=== PATIENT | male | born 1935 | race Caucasian/White ===

== ENCOUNTER 2016-09-15 15:03 | Inpatient (IN) | payer OTHER ==
[~2016-09-15] VITALS: Ht 167.6 cm; Wt 75.6 kg
--- NOTE | 2016-09-15 15:47 | DIAGNOSTIC IMAGING REPORT ---
PROCEDURE: XR CHEST 2 VIEW INDICATION: FALL/RIB PAIN TECHNIQUE: PA and lateral views. COMPARISON: Chest 09/15/2011 FINDINGS: There is a left apical pneumothorax. There is pleural fluid and infiltrate in the left lower lobe. The right lung remains clear. IMPRESSION: 1. Left-sided hemopneumo thorax. 2. Results called to Dr. Mijares at 03:45 p.m.
[2016-09-15 16:23] VITALS: BP 161/65
--- NOTE | 2016-09-15 17:37 | NUR ---
Pt arrived on the floor around 1630 as direct admit. Able to transfer self from w/c to bed, but unsteady and guarded ambulation. Pain 9/10 upon arrival, but once settled in bed, he said pain is ok at 2/10. Lungs are very diminished on anterior and posterior LLL. Tachypnic. Noted some bruises on L ribs (under armpit). Will cont to monitor.
--- NOTE | 2016-09-15 18:12 | NUR ---
Notified for his arrival. Confirmed that pt needs to be on 2L O2 at all times. also came and saw the pt. Pt will be NPO after midnight to drain out the hematoma tomorrow. Pt comfortable but slight movement causes severe pain. Will try and manage pain with topical lidocaine, but has vicodin for break through pain. Will cont to monitor.
--- NOTE | 2016-09-15 18:43 | CONSULTATION REPORT ---
DATE OF CONSULTATION: 09/15/2016 CHIEF COMPLAINT: 1. Left hemopneumothorax. HISTORY OF PRESENT ILLNESS: The patient is a 80-year-old man who fell 3 days ago on his left side. He had increasing difficulty breathing, was seen in the clinic. He was found on chest x-ray to have a hemopneumothorax on the left side. MEDICAL/SURGICAL HISTORY: He has a history of previous falls. Additional medical history includes irregular heart rate, small-bowel obstruction, renal mass, dizziness, essential hypertension, BPH, depression, colostomy and ventral hernia, hypercholesterolemia, diabetic neuropathy, type 2 diabetes. Past surgery: The patient had a peristomal hernia repair and incarcerated ventral hernia repair in 2004. He had a proctocolectomy for ulcerative colitis as well as an ileostomy placed in the distant past. MEDICATIONS: 1. Currently are calcium supplements. 2. Eucerin skin cream. 3. Triamcinolone skin cream. 4. Spiriva inhaler 18 mcg daily for COPD. 5. Metformin HCL 500 mg b.i.d. 6. Aspirin 81 mg daily. 7. Lovastatin 40 mg every. 8. Sertraline 100 mg daily. 9. Losartan 50 mg daily. 10. Multiple nutritional supplements. ALLERGIES: 1. LISINOPRIL. 2. CHLORTHALIDONE. 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 He quit smoking in 1996 and does not use alcohol. Does not use recreational drugs. He is . FAMILY HISTORY: Mother is living. Father at age 85. Brother has diabetes. PHYSICAL EXAMINATION: GENERAL: The patient is alert and cooperative. He is eating dinner at the moment. He is mildly tachypneic and appears mildly short of breath. HEENT: His ears and nose demonstrate no gross external lesions. Eyes are equal. He is anicteric. NECK: Without palpable masses or thyromegaly. CHEST: Clear; however, breath sounds are absent in the lower half of the left chest and diminished in the upper portion. ABDOMEN: Soft. No localized tenderness. He has an ileostomy in place. LAB/IMAGING: His x-ray PA and lateral was reviewed. It appears the lower third demonstrates a density consistent with hemothorax. There is an apical pneumothorax relatively small. ASSESSMENT: 1. Left hemopneumothorax with significant fluid density. PLAN: I recommended the patient undergo drainage of this fluid density in the operating room under thoracoscopic guidance. This was consistent with thoracoscopic decortication, especially in the event that a clotted hemothorax was found. This can usually be broken up and evacuated mechanically before placement of a chest tube to reexpand the lung. I explained to the patient the purpose of this procedure as well some of the risks involved and he agreed to undergo it. In my opinion, this will be his most reliable way of achieving full pulmonary function since hemopneumothoraces at this point in time are often clotted and do not evacuate easily through simple percutaneous chest tube placement.
--- NOTE | 2016-09-15 23:00 | NUR ---
PT RESTING IN BED. ALERT AND ORIENTED X3. PAIN AT A 0/10, INCREASING WITH MOVMEMENT. O2 SATS AT 94% ON 2 LITERS NC. NO COUGH NOTED. NO CHEST PAIN, NO HEART PALPITATIONS. IV TO RAC UNREMARKABLE - IV INFUSING AT 100/HR. PT RECIEVED A AM SNACK - ATE 100%. WAFFLE MATTRESS IN PLACE. SCDS BILAT. CALL LIGHT WITHIN REACH. PT REPOSITIONS IN BED WITH ENCOURAGEMENT. NO FURTHER REQUESTS AT THIS TIME.
--- NOTE | 2016-09-15 23:02 | NUR ---
PT REMAINS ON TELE - SINUS RHYTHM WITH PVCS NOTED. HEART RATE AT 63.
[2016-09-15 23:37] VITALS: BP 129/63
--- NOTE | 2016-09-15 23:52 | NUR ---
FLUIDS TAKEN AWAY FROM PT - NPO AT THIS TIME FOR AM SURGERY.
--- NOTE | 2016-09-15 23:53 | NUR ---
INCENTIVE SPIROMETER GIVEN TO PT WITH INSTRUCTIONS - PT USE APPROPRIATELY TO 1250ML.
[2016-09-16] VITALS (9 sets, daily range): BP systolic 134–156; BP diastolic 58–73
--- NOTE | 2016-09-16 06:23 | DIAGNOSTIC IMAGING REPORT ---
PROCEDURE: XR CHEST 1 VIEW INDICATION: Follow-up left hydropneumothorax. TECHNIQUE: Portable AP view (0540 hours). COMPARISON: None. FINDINGS: There has been no change in small to moderate left apical pneumothorax with moderate left pleural effusion. There is moderate worsening in left basilar atelectasis/consolidation. There is mild volume loss at the right lung base. Heart and mediastinum are normal. No definite rib fractures are identified, although occult rib fractures may be present. IMPRESSION: 1. No change in small to moderate left apical pneumothorax. 2. No change in moderate left basilar pleural pneumothorax. 3. Mild worsening in moderate left basilar atelectasis/consolidation. 4. Development of mild volume loss at the right lung base.
[2016-09-16] MEDS ORDERED: CALCIUM CARBON500 MG PO (07:28)
[2016-09-16] MEDS ORDERED: EUCERI1 (07:28)
[2016-09-16] MEDS ORDERED: TRIAMCINOLONE0.025 % (07:29)
[2016-09-16] MEDS ORDERED: SPIRIVA18 MCG INH (07:29)
[2016-09-16] MEDS ORDERED: GLUCOPHAGE500 MG PO (07:29)
[2016-09-16] MEDS ORDERED: LOVASTATIN40 MG PO (07:30)
[2016-09-16] MEDS ORDERED: ASPIRIN81 M1 PO (07:30)
[2016-09-16] MEDS ORDERED: COZAAR50 MG PO (07:30)
[2016-09-16] MEDS ORDERED: SERTRALINE HCL50 MG PO (07:30)
[2016-09-16] MEDS ORDERED: MULTIPLE VITAMIN PO (07:31)
[2016-09-16] MEDS ORDERED: FISH OIL PO (07:32)
--- NOTE | 2016-09-16 07:40 | Progress Note ---
Subjective General 80 year old male who has had repeated falls. Was seen in clinic with CXR showing hemothorax and pneumothorax. Was admitted for monitoring and surgical consultation. Rec that he have removal of clot to help with lung function. He is feeling better with the pain meds (lidocaine patch etc) States he feels better this am. Physical Exam Vital Signs / I&Os Vital Signs Date Time Temp Pulse Resp B/P Pulse O2 O2 Flow FiO2 Ox Delivery Rate 09/16 0653 98.1 56 18 140/73 95 Nasal 2.0 Cannula 09/16 0521 98.1 60 16 134/63 97 Nasal 2.0 Cannula 09/15 2337 129/63 09/15 2255 67 16 94 Nasal 2.0 Cannula 09/15 1931 Nasal 2.0 Cannula 09/15 1623 98.1 64 28 161/65 96 I&O 09/16 0000 09/15 1600 09/15 0800 Intake Total 120 Output Total 650 Balance -530 General Appearance Alert, Cooperative, No acute distress Lungs coarse BS and some decrease in BS on the L side Cardiovascular Regular rate and rhythm Abdomen Soft, mildly tender at the right upper abd/lower chest Extremities No edema LAB Results Laboratory Tests 09/16 09/15 0520 1750 Chemistry Plasma Sodium (136 - 145 mmol/L) 142 143 Plasma Potassium (3.5 - 5.1 mmol/L) 3.9 3.7 Plasma Chloride (98 - 107 mmol/L) 108 107 CO2 (Enzymatic) (21 - 32 mmol/L) 26 28 BUN (7 - 18 mg/dL) 16 18 Creatinine (0.6 - 1.3 mg/dL) 1.0 1.4 Est GFR ( Amer) (mL/min) >60 >60 Est GFR (Non-Af Amer) (mL/min) >60 52.09 Glucose (70 - 110 mg/dL) 125 127 Plasma Calcium (8.5 - 10.1 mg/dL) 8.0 8.2 Total Bilirubin (0.0 - 1.0 mg/dL) 0.8 AST (15 - 37 U/L) 21 ALT (12 - 78 U/L) 21 Alkaline Phosphatase (46 - 116 U/L) 61 Total Protein (6.4 - 8.2 g/dL) 7.3 Albumin (3.3 - 5.0 g/dL) 3.4 Hematology WBC (4.5 - 11.5 K/uL) 7.9 8.2 RBC (4.50 - 5.90 M/uL) 3.15 3.42 Hgb (13.5 - 17.5 gm/dL) 10.4 11.2 Hct (41.0 - 53.0 %) 31.4 34.0 MCV (80 - 100 fL) 100 99 MCH (26 - 34 pg) 33 33 RDW (11.6 - 14.8 %) 14.6 14.0 Neut % (Auto) (50 - 75 %) 64.9 71.9 Lymph % (Auto) (25 - 40 %) 20.9 17.7 [place] % (Auto) (3 - 14 %) 11.6 9.5 Eos % (Auto) (0 - 4 %) 2.1 0.7 Baso % (Auto) (0 - 2 %) 0.5 0.2 Plt Count, EDTA (150 - 400 K/uL) 129 163 PUBS MCHC (31 - 37 g/dL) 33 33 Microbiology Date/Time Procedure - Status Source Growth 09/16 0618 MRSA Screen - RECD NASAL Imaging CXR: IMPRESSION: 1. No change in small to moderate left apical pneumothorax. 2. No change in moderate left basilar pleural pneumothorax. 3. Mild worsening in moderate left basilar atelectasis/consolidation. 4. Development of mild volume loss at the right lung base. Assessment and Plan Problem List 1. Pneumothorax Plan To the OR today with Dr Neff. 2. Hemothorax Plan OR today Dr. Neff 3. Rib pain on left side Plan Improved pain control 4. Fall Plan Has been with falls and will have PT eval. May need to have strengthening after stable.
--- NOTE | 2016-09-16 09:31 | NUR ---
PATIENT COMPLAINING OF SOME PLEURITIC LIKE CHEST PAIN THAT RADIATES TO BACK. ALSO TELE HAS BEEN SHOWING SINUS YAZMIN WITH SOME PAC'S OCCASIONALLY DIPPING DOWN TO THE 40'S BUT MAINLY IN THE 50'S. NOTIFIED DR TRINIDAD, ORDERS FOR EKG WELL AN ADD ON TROPONIN FOR THIS A.M. AND TOMORROW MORNING. FAMILY VISITNG PATIENT NOW. GIVEN PAIN MEDICINE. WILL MONITOR, CALL LIGHT WITHIN REACH.
--- NOTE | 2016-09-16 14:04 | NUR ---
NUTRITION ASSESSMENT: S: Pt is 80 year old man that fell 3 days ago on his left side and was admitted with left hemopneumothorax. Pt is down for a procedure for drainagel of fluid density under thoracoscopic, pt has been NPO for today but has reportedly lost ~15 pounds in last 2 months. PMH includes: irregular heart rate, small bowel obstruction, renal mass, dizziness, essential HTN, depression, colonoscopy, ventral hernia, hypercholesterolemia, diabetic neuropathy, type II diabetes. O: Diet rx: NPO NKFA Wts: 74.1 kg Ht:66" IBW: 52-66 kg BMI: 26.5 Est kcals: ~3690-0719 kcals per day Est pro: ~66-80 g per day Est fluids: ~1980 mls per day Meds Incl: atacand, med dose SSI, levofloxacin, lidocane, sertraline, see eMar for complete list/details. Labs Incl: (09/16) glucose 125, BUN 16, Na+ 142, K+ 3.9, Ca+ 8.0, HCT 31.4, HGB 10.4, MCV 100, MCH 33 albumin 3.4, total pro 7.3 skin: luis daniel score [address] Accuchecks: 103-125 A: Pt down for procedure this afternoon. Rec consistent carb diet when able to have solid foods. Rec boost glucose control if po less than 50% after meals. Rev'd meds and labs, recent accuchecks appear within acceptable peramenters. RD to follow up and continue to monitor nutritino indices prn/protocol. nutrition goals: >50% po intake no further wt loss.
--- NOTE | 2016-09-16 14:51 | NUR ---
INTRODUCED SELF TO PT IN PRE OP HOLDING. PT VERIFIED NAME, BIRTHDATE, ALLERGIES, AND SURGICAL CONSENT. PT NPO SINCE MIDNIGHT WITH SIPS OF WATER WITH HIS AM MEDICATIONS. PT BLOOD SUGAR 105 AT 1415. PT CHART REVIEWED AND PT QUESTIONS ANSWERED. SURGEON WROTE ORDER FOR 1GM ANCEF. PT VOIDED IMMEDIATELY PRIOR TO TRANSPORTATION TO PRE OP HOLDING. JOE
--- NOTE | 2016-09-16 14:59 | NUR ---
PT RESTATED NAME, BIRTHDATE, AND SURGICAL PROCEDURE AFTER ENTERING OR SUITE. SD
--- NOTE | 2016-09-16 15:00 | NUR ---
PT AND SURGEON COORDINATED MARKING OF LEFT SIDE SURGICAL SITE. JOE
--- NOTE | 2016-09-16 15:07 | NUR ---
PT POSITIONED BY SURGEON, ANESTHESIA, NU.SD, NU.DIL, FT.LDE, OR.JAB, OR.MLC PEG BOARD ON BED FULL GEL PAD COVERING PEG BOARD GEL PAD DOUBLED AT LOWER PORTION OF BED, UNDER PT RIGHT LOWER LEG ROLLED EGGCRATE RIGHT AXILLARY ROLL LEFT ARM POSITIONED ON PILLOW ON TEE STAND RIGHT ARM ON ARMBOARD PILLOW BETWEEN PT LEGS PILLOW UNDER PT HEAD
--- NOTE | 2016-09-16 15:14 | NUR ---
PTS GENITALIA CHECKED
--- NOTE | 2016-09-16 16:41 | NUR ---
PT RECEIVED TO PACU AROUSABLE TO VOICE. VSS. HOB ELEVATED 30 DEGREES. CHEST TUBES A-ANTERIOR, B-POSTERIOR CONNECTED TO -20CM H2O PRESSURE, BOTH CHEST TUBES WITH AIRLEAK AND RED DRAINAGE. GOOD FLUCTUATION WITH RESPIRATION ON BOTH CHEST TUBES. PT PLACED ON HUMIDIFIED O2 VIA FACE TENT. VSS.
--- NOTE | 2016-09-16 16:59 | NUR ---
PT AWAKE AND COMFORTABLE. DENIES PAIN OR NAUSEA. COACHED TO DEEP BREATHE AND COUGH. VSS. DR TOURE SPOKE WITH PT REGARDING SURGICAL FINDINGS AND OUTCOME.
--- NOTE | 2016-09-16 17:01 | DIAGNOSTIC IMAGING REPORT ---
PROCEDURE: XR CHEST 1 VIEW INDICATION: post op evacuation of hemo pneumothorax TECHNIQUE: Portable AP view 04:27 p.m. COMPARISON: Chest x-ray 09/16/2016 FINDINGS: Poor inspiration. Interval placement of a two left chest tubes with resolved left pneumothorax. No change of the moderate left basilar consolidation and right basilar atelectasis. Heart size, mediastinum and pulmonary vessels are normal. Thorax is normal. IMPRESSION: 1. Two left chest tubes in place with resolved left pneumothorax 2. Stable moderate left basilar consolidation and mild right basilar atelectasis
--- NOTE | 2016-09-16 17:32 | NUR ---
PATIENT BACK TO ROOM 306 FROM PACU. AWAKE AND ALERT. HAS TWO CHEST TUBES PRESENT WHICH BOTH HAVE SOME OUTPUT. TO WALL SUCTION. FMAILY AT BEDSIDE. CURRENTLY ON THE 50 PERCENT FACE TENT AND 4 LITERS NASAL CANNULA. NO COMPLAINTS OF PAIN AT THIS TIME. TIDALING PRESENT IN CHEST TUBE A AND B CHAMBER.
--- NOTE | 2016-09-16 19:49 | OPERATIVE REPORT ---
DATE OF SURGERY: 09/16/2016 SURGEON: Daniel Perera MD PREOPERATIVE DIAGNOSIS: 1. Left hemopneumothorax POSTOPERATIVE DIAGNOSIS: 1. Left hemopneumothorax PROCEDURE PERFORMED: 1. Thoracoscopy with evacuation of hemopneumothorax and placement of chest tube ANESTHESIA: General. INDICATIONS: The patient is a 80-year-old man with rib fractures and a progressing hemopneumothorax on the left side. He is 4 days post-injury. SURGICAL TECHNIQUE: The patient was taken to the operating room, where a double- lumen general anesthetic was administered and the patient was placed in the right lateral decubitus position. The left chest was sterilely prepped and draped and the patient received IV antibiotics. A local anesthetic of 0.5% Marcaine with epinephrine was used at each trocar site. Two trocar sites were placed in the left lateral chest, and a 45 degree angled scope was inserted. There was bloody fluid with a few small flecks of clot, but mostly bloody effusion in the left chest. Additionally, there was a smell of anesthetic gases, indicating ongoing air leak. The bloody fluid was completely evacuated and rinsed out, following which Marcaine was instilled in the chest cavity posteriorly for analgesia. A 28-Tu[place]uan chest tube and a 36-Tuvaluan chest tube were placed, 1 anterior and 1 posterior, and sutured to the skin with 2-0 nylon suture. Chest tube dressings were applied, and both tubes were placed to Pleur-Evac suction, and a chest x-ray was ordered. The patient left in good condition.
--- NOTE | 2016-09-16 19:49 | OPERATIVE REPORT ---
DATE OF SURGERY: 09/16/2016 SURGEON: Daniel Perera MD PREOPERATIVE DIAGNOSIS: 1. Left hemopneumothorax POSTOPERATIVE DIAGNOSIS: 1. Left hemopneumothorax PROCEDURE PERFORMED: 1. Thoracoscopy with evacuation of hemopneumothorax and placement of chest tube ANESTHESIA: General. INDICATIONS: The patient is a 80-year-old man with rib fractures and a progressing hemopneumothorax on the left side. He is 4 days post-injury. SURGICAL TECHNIQUE: The patient was taken to the operating room, where a double- lumen general anesthetic was administered and the patient was placed in the right lateral decubitus position. The left chest was sterilely prepped and draped and the patient received IV antibiotics. A local anesthetic of 0.5% Marcaine with epinephrine was used at each trocar site. Two trocar sites were placed in the left lateral chest, and a 45 degree angled scope was inserted. There was bloody fluid with a few small flecks of clot, but mostly bloody effusion in the left chest. Additionally, there was a smell of anesthetic gases, indicating ongoing air leak. The bloody fluid was completely evacuated and rinsed out, following which Marcaine was instilled in the chest cavity posteriorly for analgesia. A 28-B[place]amian chest tube and a 36-Bahamian chest tube were placed, 1 anterior and 1 posterior, and sutured to the skin with 2-0 nylon suture. Chest tube dressings were applied, and both tubes were placed to Pleur-Evac suction, and a chest x-ray was ordered. The patient left in good condition.
[2016-09-17 02:15] VITALS: BP 150/64
--- NOTE | 2016-09-17 06:30 | Progress Note ---
Subjective General 80 year old male who has had repeated falls. Was seen in clinic with CXR showing hemothorax and pneumothorax. Was admitted for monitoring and surgical consultation. Rec that he have removal of clot to help with lung function. Is post op and has had some increase in pain and also has been with difficulty with urination. Had 600cc out after madden placement. Physical Exam Vital Signs / I&Os Vital Signs Date Time Temp Pulse Resp B/P Pulse O2 O2 Flow FiO2 Ox Delivery Rate 09/17 0215 97.5 59 16 150/64 98 Nasal 5.0 Cannula 09/17 0000 Nasal 5.0 Cannula 09/17 0000 Nasal 5.0 Cannula 09/16 223 97.5 78 22 156/62 96 Nasal 5.0 Cannula 09/16 2018 5.0 09/16 2014 Nasal 5.0 Cannula 09/16 1900 74 16 150/61 95 09/16 1823 71 16 150/69 98 09/16 1811 67 16 146/62 98 Face Tent 10.0 09/16 1754 66 16 155/66 97 Face Tent 10.0 09/16 1718 97.5 70 16 145/69 91 Face Tent 10.0 09/16 1705 65 12 148/66 95 NC/FT 4.0 09/16 1700 67 14 154/60 94 NC/FT 4.0 09/16 1655 97.2 68 13 148/67 92 NC/FT 2.0 09/16 1650 68 14 156/65 94 Face Tent 50 09/16 1645 70 15 145/64 95 Face Tent 50 09/16 1640 72 16 156/62 96 Face Tent 50 09/16 1635 72 14 168/70 96 Face Tent 50 09/16 1630 77 16 147/82 99 Face Tent 70 09/16 1625 82 16 147/70 91 Nasal 4.0 Cannula 09/16 1620 91 14 158/64 90 Nasal 4.0 Cannula 09/16 1616 97.2 87 16 152/77 90 Nasal 3.0 Cannula 09/16 1008 98.4 60 21 138/58 96 Nasal 2.0 Cannula 09/16 0759 Nasal 2.0 Cannula 09/16 0653 98.1 56 18 140/73 95 Nasal 2.0 Cannula I&O 09/17 0000 09/16 1600 09/16 0800 Intake Total 1585 800 908 Output Total 800 275 50 Balance 785 525 858 General Appearance Alert, Cooperative Lungs Coarse BS non focal., L chest with chest tubes Cardiovascular Regular rate and rhythm, No murmurs, gallops, rubs Abdomen Soft, No tenderness Extremities No edema LAB Results Laboratory Tests 09/17 0435 Chemistry Troponin (0.00 - 1.5 ng/mL) <0.05 Assessment and Plan Problem List 1. Pneumothorax Plan Post op doing well. 2. Hemothorax Plan Has improvement post op. CT per surgery 3. Rib pain on left side Plan Post op on L side. Increase on pain control. 4. Urinary retention Plan Madden cath may try removal in a few days
[2016-09-17 07:32] VITALS: BP 129/57
--- NOTE | 2016-09-17 08:20 | DIAGNOSTIC IMAGING REPORT ---
PROCEDURE: XR CHEST 1 VIEW INDICATION: CHEST TUBES, follow-up TECHNIQUE: Portable AP view 04:48 a.m. COMPARISON: Chest x-ray 09/16/2016 FINDINGS: Two stable left chest tubes with a new moderate chest wall emphysema. Poor inspiration with mild right basilar atelectasis and improving left basilar consolidation. Evidence of a pneumothorax. Heart size, mediastinum and prior vessels are normal. No suspicious osseous lesions. IMPRESSION: 1. Two left chest tube in stable position without pneumothorax but with new moderate chest wall emphysema 2. Improved left basilar consolidation
[2016-09-17 10:48] VITALS: BP 125/53
--- NOTE | 2016-09-17 11:29 | NUR ---
pt refused PT. Attempt 08/31. RN notified.
--- NOTE | 2016-09-17 11:43 | NUR ---
pt not appropriate for PT at this time secondary to pain. Will ck bk as able.
[2016-09-17 14:12] VITALS: BP 155/55
--- NOTE | 2016-09-17 16:36 | NUR ---
Patient has been very painful all day. Gave pain medication as ordered, no complaints of nausea or vomiting. Notified Dr. Mijares of patient's pain level, orders received. Patient is reluctant to cough because of the pain, encouraged use of IS and cough/deep breathe, patient is compliant. Nurse farhan and I replaced saturated guaze and tape over chest tubes. Will continue to monitor patient until reporting off to next nurse.
[2016-09-17 18:28] VITALS: BP 119/45
[2016-09-17 23:05] VITALS: BP 132/63
[2016-09-18] VITALS (7 sets, daily range): BP systolic 102–190; BP diastolic 43–135
--- NOTE | 2016-09-18 07:55 | Progress Note ---
Subjective General 80 year old male who has had repeated falls. Was seen in clinic with CXR showing hemothorax and pneumothorax. Was admitted for monitoring and surgical consultation. Rec that he have removal of clot to help with lung function. Post op had increase in pain and difficulty with urination. Had 600cc out after madden placement. Now feeling oK. Nursing and pt report marked burning on abdominal wall between colostomy and wrapping around to chest tubes yesterday. It lasted several hours and is now resolved. 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 Has pain in chest with moving. Denies nausea or vomiting. Physical Exam Vital Signs / I&Os Vital Signs Date Time Temp Pulse Resp B/P Pulse O2 O2 Flow FiO2 Ox Delivery Rate 09/18 0655 98.4 68 20 129/58 99 Nasal Cannula 09/18 0206 98.2 69 16 152/73 99 Nasal 6.0 Cannula 09/17 2305 98.6 73 16 132/63 96 Nasal 6.0 Cannula 09/17 2140 4.0 09/17 1945 Nasal 4.0 Cannula 09/17 1828 98.4 69 19 119/45 97 Nasal 4.0 Cannula 09/17 1449 98.8 09/17 1412 68 24 155/55 96 Nasal 4.0 Cannula 09/17 1048 98.1 63 26 125/53 98 Nasal 4.0 Cannula 09/17 0830 Nasal 2.0 Cannula I&O 09/17 0800 09/17 1600 09/18 0000 Intake Total 728 1490 1590 Output Total 917 572 950 Balance -189 918 640 General Appearance Alert, Oriented X3, Cooperative, Mild distress Lungs Clear to auscultation Cardiovascular Regular rate and rhythm Abdomen Normal bowel sounds, Mild diffuse tenderness which he says is baseline for him. Extremities No edema Skin No Rashes LAB Results Laboratory Tests 09/18 518 Chemistry Plasma Sodium (136 - 145 mmol/L) 142 Plasma Potassium (3.5 - 5.1 mmol/L) 3.9 Plasma Chloride (98 - 107 mmol/L) 109 CO2 (Enzymatic) (21 - 32 mmol/L) 26 BUN (7 - 18 mg/dL) 14 Creatinine (0.6 - 1.3 mg/dL) 0.9 Est GFR ( Amer) (mL/min) >60 Est GFR (Non-Af Amer) (mL/min) >60 Glucose (70 - 110 mg/dL) 108 Plasma Calcium (8.5 - 10.1 mg/dL) 7.9 Hematology WBC (4.5 - 11.5 K/uL) 8.1 RBC (4.50 - 5.90 M/uL) 3.11 Hgb (13.5 - 17.5 gm/dL) 10.3 Hct (41.0 - 53.0 %) 31.4 MCV (80 - 100 fL) 101 MCH (26 - 34 pg) 33 RDW (11.6 - 14.8 %) 14.2 Neut % (Auto) (50 - 75 %) 75.7 Lymph % (Auto) (25 - 40 %) 13.0 [place] % (Auto) (3 - 14 %) 8.2 Eos % (Auto) (0 - 4 %) 2.8 Baso % (Auto) (0 - 2 %) 0.3 Plt Count, EDTA (150 - 400 K/uL) 146 PUBS MCHC (31 - 37 g/dL) 33 Assessment and Plan Problem List 1. Pneumothorax Plan iMPROVED WITH CHEST TUBES. 2. Hemothorax Plan Improved with chest tubes. 3. Urinary retention Plan Stable with madden.
--- NOTE | 2016-09-18 08:49 | NUR ---
GOT PATIENT UP TO CHAIR THIS AM WITH 2 PERSON ASSIST FOR MANAGING CHEST TUBES/O2, ETC. PATIENT DID WELL, SOB WITH TRANSFER. TURNED PATIENT UP FROM 4LNC TO 6LNC DUE TO SOB AND ALSO EATING WHICH IS CAUSING HIM TO DESAT TO 89% WITH 4LNC. CHEST TUBES IN PLACE. DRAINING SEROSANG FLUID IN BOTH. SEE SHIFT ASSESSMENT FOR FURTHER DETAILS.
--- NOTE | 2016-09-18 09:54 | NUR ---
ORDERS FOR CHEST TUBES TO WATER SEAL. SUCTION DC'D BY THIS RN.
--- NOTE | 2016-09-18 10:22 | NUR ---
SPOKE TO PATIENT ABOUT NEEDS WHEN HE DC'S TO HOME. PATIENT STATES HE USES CPAP AT NIGHT AND HAS O2 AVAILABLE BUT DOESN'T USE IT AT HOME. CURRENTLY HE IS ON 6LNC. DR. TOURE PLANS TO DC CHEST TUBES TOMORROW AM. PATIENT STATES THAT HE WOULD BE INTERESTED IN DCING TO SNF BEFORE DC TO HOME IN ORDER TO STRENGTHEN AND REHAB IF NEEDED. PT WILL EVALUATE ON TUESDAY.
--- NOTE | 2016-09-18 10:57 | DIAGNOSTIC IMAGING REPORT ---
PROCEDURE: XR CHEST 1 VIEW INDICATION: CHEST TUBES X 2, follow-up TECHNIQUE: Portable AP view 09:59 a.m. COMPARISON: Chest x-ray 09/17/2016 FINDINGS: Stable two left chest tubes without residual pneumothorax. Continued improvement of retrocardiac consolidation and improved right basilar atelectasis. New left mid lung peripheral opacity. Improving left chest wall subcutaneous emphysema. Heart size, mediastinum and prior vessels are normal. No suspicious osseous lesion IMPRESSION: 1. Stable two left chest tubes without residual pneumothorax 2. Improving left basilar consolidation and right basilar atelectasis 3. Left mid lung peripheral opacity, likely loculated pleural effusion 4. Small bilateral pleural effusions
--- NOTE | 2016-09-18 15:42 | NUR ---
PATIENT RESTING IN BED AT THIS TIME WITH O2 FLUCTUATING BETWEEN 4-6LNC TODAY TO KEEP SATS >92%. 2 CHEST TUBES STABLE AT SITE TO WATER SEAL. USING INCENTIVE SPIROMETER UP TO 1000CC'S. ENCOURAGED TO COUGH AND DEEP BREATHE OFTEN WHICH HE IS DOING. WILL GET PATIENT UP FOR DINNER TO CHAIR.
--- NOTE | 2016-09-18 17:28 | DIAGNOSTIC IMAGING REPORT ---
PROCEDURE: XR CHEST 1 VIEW INDICATION: RESP DISTRESS, follow-up TECHNIQUE: Portable AP view 05:07 p.m. COMPARISON: Chest x-ray 09/18/1978 09:59 a.m. FINDINGS: Two stable left chest tubes with resolved pneumothorax. Continued improvement of left basilar consolidation. There are a few new Chema B lines in the right lung base with slight progression of small right pleural effusion. Mild cardiomegaly. No suspicious osseous lesions. IMPRESSION: 1. Developing Chema B lines increasing 2. Stable 2 left chest tubes with resolved pneumothorax improving left basilar consolidation 3. Resolving left chest wall subcutaneous emphysema 4. Results discussed with Dr. Delgadillo
--- NOTE | 2016-09-18 18:21 | NUR ---
AT 1630 PATIENT BEGAN TO C/O PAIN AT L ANTERIOR CHEST. WAS PREVIOUSLY MEDICATED WITH DILAUDID IV SO THIS RN GAVE METHOCARBOMOL PO AND OXYCODONE 5MG PO FOR PAIN. PATIENT BEGAN HAVING MORE INCREASED RESPIRATIONS AND DIFFICULTY BREATHING. R 44, BP 190/135, P 116 AND WAS DESATTING ON 6LNC TO LOW 80'S. PUT ON 10L OXYMASK UP TO 93%. BREATH SOUNDS BILATERALLY. UPPER RESP WHEEZING. PHONE CALL TO DR. TOURE WHO ORDERED STAT CXR. ALSO NOTIFIED DR. MOHR WHO NOTIFIED DR. CARREON HOSPITALIST TODAY TO CONSULT. DR. CARREON SAW PATIENT WHO ORDERED EKG AND LABS. AFTER CXR VISUALIZED BY DR. CARREON, ORDERED IV LASIX AND TOPICAL NITROPASTE WHICH THIS RN ADMINISTERED. AT 1729 BP 115/59, RESP 24, HR 101, O2 95% ON 10L OXYMASK. MCKOY OUTPUT AFTER LASIX 500CC'S. IV FLUIDS STOPPED. PATIENT RESTING COMFORTABLY NOW.
--- NOTE | 2016-09-18 18:51 | NUR ---
PATIENT RESTING IN BED. STATES HE DOES NOT HAVE ANY MORE PAIN. HR 94. ON 10L OXYMASK 95%. NO SOB. MCKOY CATHETER DRAINING CLEAR YELLOW URINE. COARSE UPPER AIRWAY R SIDE, CRACKLES LLL. CHEST TUBES IN PLACE, A AND B. A WITH MORE OUTPUT THAN B.
--- NOTE | 2016-09-18 19:41 | Progress Note ---
Subjective General Note Date: September 18, 2016 Admission Date: September 15, 2016 Hospital Day: 4 PCP: Manuelito Mijares M.D. Status: Inpatient Advanced Directive: FULL CODE Room: 306 Brief History: The patient is a 80-year-old white male with a significant past medical history of COPD, diabetes mellitus, hypercholesterolemia, depression, who presented to [facility] secondary to fall with chest pain and difficulty breathing. [facility] ER evaluation was consistent with hemopneumothorax on the left side. Secondary to the above, the patient was admitted by Daniel Perera M.D. with medical management by Manuelito Mijares M.D. for further evaluation and treatment. For other history present illness, past medical history, family history, social history, review of systems, and admission physical examination please see the patient's history and physical examination and ER visit note in the patient's medical record. Subjective: The patient was apparently doing fairly well until this afternoon when he developed the left-sided pleuritic chest pain with associated shortness of breath. Evaluation was consistent with possible early CHF. Patient requests: Improved treatment of shortness of breath Physical Exam Vital Signs / I&Os Vital Signs Date Time Temp Pulse Resp B/P Pulse O2 O2 Flow FiO2 Ox Delivery Rate 09/18 1912 Mask 10.0 09/18 1756 16.0 09/18 1745 101 24 115/59 95 Mask 10.0 09/18 1645 115 44 190/135 88 Mask 10.0 09/18 1435 98.4 09/18 1432 72 19 112/53 94 Nasal 5.0 Cannula 09/18 1118 5.0 09/18 1040 98.4 72 18 102/47 99 Nasal 6.0 Cannula 09/18 0729 5.0 09/18 0655 98.4 68 20 129/58 99 Nasal Cannula 09/18 0206 98.2 69 16 152/73 99 Nasal 6.0 Cannula 09/17 2305 98.6 73 16 132/63 96 Nasal 6.0 Cannula 09/17 2140 4.0 I&O 09/18 0000 09/17 1600 09/17 0800 Intake Total 1590 1490 728 Output Total 950 572 917 Balance 640 918 -189 General Appearance Alert, Cooperative, Moderate distress Lungs Slightly decreased breath sounds left base with friction rub present left side. right lung base shows decreased breath sounds with rales present and scattered rhonchi., Bilateral expiratory wheezes present. Cardiovascular Normal S1 and S2, Tachycardic. Abdomen Normal bowel sounds, Soft, No tenderness Extremities No cyanosis, No clubbing Neurological Cranial nerves intact, No lateralizing signs LAB Results Laboratory Tests 09/18 09/18 09/18 09/18 1740 1740 1718 0519 Blood Gas Sample Site RR Total CO2 (24.0 - 30.0 mmol/L) 22.6 ABG pH (7.35 - 7.45) 7.34 ABG pCO2 at Pt Temp (35 - 45 mmHg) 40.0 ABG pO2 at Pt Temp (60.0 - 80.0 mmHg) 78.1 ABG HCO3 (20.0 - 26.0 mmol/L) 21.4 ABG O2 Sat Calc/Promise (95.1 - 100.0 %) 95.8 ABG Base Excess (-6.0 - -6.0 mmol/L) -4.1 ABG Reduced Hgb (%) 4.1 ABG Carboxyhemoglobin (0.5 - 1.5 %) 1.8 ABG Methemoglobin (0.4 - 1.5 %) 0.0 Steven Test YES Other Total Hgb (14.0 - 18.0 g/dL) 11.1 A-a O2 Gradient (7.0 - 14.0 mmHg) 576.5 Hgb O2 Saturation (95.0 - 100.0 %) 94.1 Respiration Rate (/MIN) 31 O2 Liters/Min (0 - 20 L/MIN) 15 Vent Mode SB FiO2 (20 - 101 %) 90 Chemistry Plasma Sodium (136 - 145 mmol/L) 142 Plasma Potassium (3.5 - 5.1 mmol/L) 3.9 Plasma Chloride (98 - 107 mmol/L) 109 CO2 (Enzymatic) (21 - 32 mmol/L) 26 BUN (7 - 18 mg/dL) 14 Creatinine (0.6 - 1.3 mg/dL) 0.9 Est GFR ( Amer) (mL/min) >60 Est GFR (Non-Af Amer) (mL/min) >60 Glucose (70 - 110 mg/dL) 108 Plasma Calcium (8.5 - 10.1 mg/dL) 7.9 Troponin (0.00 - 1.5 ng/mL) <0.05 B-Natriuretic Peptide (5 - 100 pg/ml) 274 Hematology WBC (4.5 - 11.5 K/uL) 8.1 RBC (4.50 - 5.90 M/uL) 3.11 Hgb (13.5 - 17.5 gm/dL) 10.3 Hct (41.0 - 53.0 %) 31.4 MCV (80 - 100 fL) 101 MCH (26 - 34 pg) 33 RDW (11.6 - 14.8 %) 14.2 Neut % (Auto) (50 - 75 %) 75.7 Lymph % (Auto) (25 - 40 %) 13.0 [place] % (Auto) (3 - 14 %) 8.2 Eos % (Auto) (0 - 4 %) 2.8 Baso % (Auto) (0 - 2 %) 0.3 Plt Count, EDTA (150 - 400 K/uL) 146 PUBS MCHC (31 - 37 g/dL) 33 Imaging Chest X-Ray IMPRESSION: 1. Developing Chema B lines increasing 2. Stable 2 left chest tubes with resolved pneumothorax improving left basilar consolidation 3. Resolving left chest wall subcutaneous emphysema 4. Results discussed with Dr. Delgadillo Dictated by: JAME FLYNN MD D: TAY;09/18/16 0424 Assessment and Plan Problem List 1. Pneumothorax Plan -Stable -Follow up with general surgery 2. Hemothorax Plan -Stable -Follow per general surgery 3. COPD (chronic obstructive pulmonary disease) Status Chronic Onset Date Unknown Plan -Patient with findings of bronchospasm -DuoNeb/albuterol -Supplemental oxygen -Consider corticosteroids 4. CHF (congestive heart failure) Status Acute Onset Date Unknown Plan -Patient with findings suggestive of early CHF -Troponin negative -Chest x-ray suggestive of early heart failure/pulmonary congestion -Unclear etiology of CHF cannot rule out ischemia -EKG shows no clear ischemic changes at this time -Serial troponin -Patient treated with topical nitrates-1.5 inches nitro paste every 6 hours, Lasix 40 mg IV now -Patient's symptoms dramatically improved with above therapy. -Recommend echocardiogram. -Case discussed with patient's attending physician-Sukhdeep Cummins M.D. -Dr. Cummins will assume care of the patient. Current status: Fair, improved Anticipated discharge date: Per Dr. Mijares's last Cummins Anticipated discharge placement: Per Dr. Mijares/alisa Patient care time: Time spent in critical care with one-on-one attendance with patient, chart review, patient interview, physical exam, CPOE, and care documentation: 35 minutes Visit to patient today: 3 Complexity of care: Moderate-High (critical care) E&M Codes Critical Care: 30-74 min/[id number]
[2016-09-19] VITALS (8 sets, daily range): BP systolic 98–128; BP diastolic 46–84
--- NOTE | 2016-09-19 04:46 | NUR ---
A/Ox3, using IS 500-700cc, strong moist cough with minimal clear sputum via yankeur suction per pt, Oxymask 10L, diminished LS bilateral, SR 68-80, sats mid 90's, turning/repositioning with assist, ileostomy with moderate soft brown output, Tello draining clear yellow, pain managed with Oxycodone and Dilaudid for breakthrough. Call light and bed alarm for safety/fall prevention.
--- NOTE | 2016-09-19 06:24 | NUR ---
Left chest tube dressing c/d/i, no subcutaneous emphysema, no air leak, intermittant fluctuation both chest tube. Both chest tube draining serousang output.
--- NOTE | 2016-09-19 07:36 | Progress Note ---
Subjective General The patient is a 80-year-old white male with a significant past medical history of COPD, diabetes mellitus, hypercholesterolemia, depression, who presented to [facility] secondary to fall with chest pain and difficulty breathing. [facility] ER evaluation was consistent with hemopneumothorax on the left side. Secondary to the above, the patient was admitted by Daniel Perera M.D. with medical management by Manuelito Mijares M.D. for further evaluation and treatment. Patient reports persistent pain in left chest, worst in back, worse with deep respiration or cough. Not feeling SOB on mask. Denies nausea or vomiting. Hungry for breakfast. Had sudden worsening of chest discomfort and SOB yesterday. Seen in consultation by Dr. Delgadillo who noted increased BNP, unchanged EKG, negative troponin and CXR unchanged except increased ana B lines. CHF diagnosed, lasix and nitropaste given and sx improved. Physical Exam Vital Signs / I&Os Vital Signs Date Time Temp Pulse Resp B/P Pulse O2 O2 Flow FiO2 Ox Delivery Rate 09/19 0600 99.1 70 21 122/51 99 Oxymask 10.0 09/19 0536 98.6 71 22 108/64 95 Oxymask 10.0 09/19 0246 99.1 67 14 98/46 97 Mask 10.0 09/19 0120 99.1 09/18 2255 100.9 83 22 102/43 97 Mask 10.0 09/18 2148 10.0 09/18 2100 oxymask 10.0 09/18 1912 Mask 10.0 09/18 1756 16.0 09/18 1745 101 24 115/59 95 Mask 10.0 09/18 1645 115 44 190/135 88 Mask 10.0 09/18 1435 98.4 09/18 1432 72 19 112/53 94 Nasal 5.0 Cannula 09/18 1118 5.0 09/18 1040 98.4 72 18 102/47 99 Nasal 6.0 Cannula 09/18 0729 5.0 I&O 09/18 0800 09/18 1600 09/19 0000 Intake Total 100 600 Output Total 885 984 8709 Balance -285 380 -1780 General Appearance Alert, Oriented X3, Cooperative, Mild distress Lungs Bilateral rhonchi, worse on left, with chest tubes on left. Cardiovascular Regular rate and rhythm Abdomen Normal bowel sounds, Soft, No tenderness Extremities No edema Skin No Rashes LAB Results Laboratory Tests 09/18 09/18 09/18 09/19 09/19 1718 1740 1740 0422 0422 Blood Gas Sample Site RR Total CO2 (24.0 - 30.0 mmol/L) 22.6 ABG pH (7.35 - 7.45) 7.34 ABG pCO2 at Pt Temp (35 - 45 mmHg) 40.0 ABG pO2 at Pt Temp (60.0 - 80.0 mmHg) 78.1 ABG HCO3 (20.0 - 26.0 mmol/L) 21.4 ABG O2 Sat Calc/Promise (95.1 - 100.0 %) 95.8 ABG Base Excess (-6.0 - -6.0 mmol/L) -4.1 ABG Reduced Hgb (%) 4.1 ABG Carboxyhemoglobin (0.5 - 1.5 %) 1.8 ABG Methemoglobin (0.4 - 1.5 %) 0.0 Steven Test YES Other Total Hgb (14.0 - 18.0 g/dL) 11.1 A-a O2 Gradient (7.0 - 14.0 mmHg) 576.5 Hgb O2 Saturation (95.0 - 100.0 %) 94.1 Respiration Rate (/MIN) 31 O2 Liters/Min (0 - 20 L/MIN) 15 Vent Mode SB FiO2 (20 - 101 %) 90 Chemistry Plasma Sodium (136 - 145 mmol/L) 143 Plasma Potassium (3.5 - 5.1 mmol/L) 4.0 Plasma Chloride (98 - 107 mmol/L) 109 CO2 (Enzymatic) (21 - 32 mmol/L) 26 BUN (7 - 18 mg/dL) 20 Creatinine (0.6 - 1.3 mg/dL) 1.2 Est GFR ( Amer) (mL/min) >60 Est GFR (Non-Af Amer) (mL/min) >60 Glucose (70 - 110 mg/dL) 101 Plasma Calcium (8.5 - 10.1 mg/dL) 8.2 Plasma Magnesium (1.8 - 2.4 mg/dL) 1.8 Total Bilirubin (0.0 - 1.0 mg/dL) 0.7 AST (15 - 37 U/L) 17 ALT (12 - 78 U/L) 14 Alkaline Phosphatase (46 - 116 U/L) 44 Troponin (0.00 - 1.5 ng/mL) <0.05 <0.05 B-Natriuretic Peptide (5 - 100 pg/ml) 274 Total Protein (6.4 - 8.2 g/dL) 5.7 Albumin (3.3 - 5.0 g/dL) 2.2 Hematology WBC (4.5 - 11.5 K/uL) 6.9 RBC (4.50 - 5.90 M/uL) 2.85 Hgb (13.5 - 17.5 gm/dL) 9.1 Hct (41.0 - 53.0 %) 28.2 MCV (80 - 100 fL) 99 MCH (26 - 34 pg) 32 RDW (11.6 - 14.8 %) 13.5 Neut % (Auto) (50 - 75 %) 74.0 Lymph % (Auto) (25 - 40 %) 13.5 [place] % (Auto) (3 - 14 %) 10.6 Eos % (Auto) (0 - 4 %) 1.8 Baso % (Auto) (0 - 2 %) 0.1 Plt Count, EDTA (150 - 400 K/uL) 139 PUBS MCHC (31 - 37 g/dL) 32 Assessment and Plan Problem List 1. Pneumothorax Plan Chest tubes in place per surgery. 2. Hemothorax Plan On chest tubes. 3. CHF (congestive heart failure) Status Acute Onset Date Unknown Plan Improved with diuresis and nitrates. O2 saturation on 10 liters by NRB. 4. COPD (chronic obstructive pulmonary disease) Status Chronic Onset Date Unknown Plan Stable.
--- NOTE | 2016-09-19 07:51 | DIAGNOSTIC IMAGING REPORT ---
PROCEDURE: XR CHEST 1 VIEW INDICATION: Follow-up pneumothorax. TECHNIQUE: Portable AP view (0520 hours). COMPARISON: Compared to chest x-rays on 09/18/2016 and 09/17/2016. FINDINGS: Allowing for suboptimal inspiration, there is increasing bibasilar parenchymal changes with of pleural effusions in the pulmonary vascular congestion. Left chest tubes are in position. No evidence of pneumothorax. Mild cardiomegaly. Mediastinum is normal normal. Thorax is normal. IMPRESSION: 1. Allowing for suboptimal inspiration, there is increasing vascular congestion and interstitial changes, with mild cardiomegaly. Findings are compatible with increased fluid status or congestive heart failure. 2. Two left chest tubes are unchanged in position. No evidence of pneumothorax.
--- NOTE | 2016-09-19 11:27 | Progress Note ---
Subjective General Pt. had O2 at problems last night. Pt. breathing and feeling better after diuresis and breathing treatments. He had no new comlaints this am. He has had his chest tubes on water seal for 24 hours. Physical Exam Vital Signs / I&Os Vital Signs Date Time Temp Pulse Resp B/P Pulse O2 O2 Flow FiO2 Ox Delivery Rate 09/19 1041 99.1 82 25 120/54 96 Oxymask 5.0 09/19 0929 10.0 09/19 0740 Oxymask 10.0 09/19 0600 99.1 70 21 122/51 99 Oxymask 10.0 09/19 0536 98.6 71 22 108/64 95 Oxymask 10.0 09/19 0246 99.1 67 14 98/46 97 Mask 10.0 09/19 0120 99.1 09/18 2255 100.9 83 22 102/43 97 Mask 10.0 09/18 2148 10.0 09/18 2100 oxymask 10.0 09/18 1912 Mask 10.0 09/18 1756 16.0 09/18 1745 101 24 115/59 95 Mask 10.0 09/18 1645 115 44 190/135 88 Mask 10.0 09/18 1435 98.4 09/18 1432 72 19 112/53 94 Nasal 5.0 Cannula I&O 09/18 0800 09/18 1600 09/19 0000 Intake Total 100 600 Output Total 126 348 2544 Balance -285 380 -1780 General Appearance Alert, Oriented X3, No acute distress Lungs decreased basilar breath sounds on the left. No air leak in the pleur evacs. Both tubes are fluctuating. Serous drainage-no blood. Neurological ambulating with nursing assist-moved from chair to bed for chest tube removal. Assessment and Plan Problem List 1. Pneumothorax Plan PTX resolved Tubes both removed at bedside and a xeroform occlusive dressing placed. Plan: medical management, continue to work on inspirometry and cough to resolve atelectasis-should be easier without the chest tubes.
--- NOTE | 2016-09-19 12:36 | NUR ---
REMOVED CHEST TUBES THIS EARLIER THIS AFTERNOON - PT TOLORATED WELL. DRESSING APPLIED AND SECURE. PT DENIES NEED FOR PAIN MEDS AT THIS TIME. SATTING AT 94% ON 5 L NC. PT SITTING UP IN BED FOR LUNCH. BG WITHIN NORMAL LIMITS TODAY - NO COVERAGE NEEDED. MCKOY DRAINING CLEAR LIGHT YELLOW URINE. NO OBSTRUCTIONS. CALL LIGHT WITHIN REACH. WCTM.
--- NOTE | 2016-09-19 14:41 | NUR ---
IS WITH ENC TO 750ML. REMINDED PT TO DO IS DURING COMMERIC[employer] ON TV.
--- NOTE | 2016-09-19 19:00 | NUR ---
PT WAS EXPERIENCING 9/[address] INCISION SITES WHEN COUGHING. ADMINISTERED 0.5MG DILAUDID - PT HAD IMMEDIATE PAIN RELIEF. STATES 0/10 PAIN AT 1900. PT NOW SLEEPING IN BED WITH HOB AT APPROX 70 DEGREES.
--- NOTE | 2016-09-19 20:15 | NUR ---
Pt pulled off o2 cannula, stated he was in a "motel" and thought there was some "poison on the premises". O2 replaced on pt, sat level had been 92-94% while on RA, resp rate low 30's, pt had narcotics recently, pt able to state he is in the "[facility]", used IS 700cc, pt relaxing watching TV. Continue to monitor for potential delirium and decrease use of narcotics.
--- NOTE | 2016-09-19 21:48 | NUR ---
Pt having increased resp rate high 30;s, sats on 5-6L 93-95%, HR SR 80's, SBP teens/120, bilateral course rhonchi, notified RT pt currently on oxymask 10l, and notified hospitalist who came to the bedside. New orders placed. Continue to monitor pt's resp status.
[2016-09-20 05:27] VITALS: BP 137/56
--- NOTE | 2016-09-20 05:56 | DIAGNOSTIC IMAGING REPORT ---
PROCEDURE: XR CHEST 1 VIEW INDICATION: Follow-up congestive heart failure. TECHNIQUE: Portable AP view (0520 hours). COMPARISON: Compared to chest x-ray on 09/19/2016. FINDINGS: Allowing for suboptimal inspiration, there has been mild to moderate improvement with resolving of pulmonary edema and bilateral pleural effusions. Heart has returned to normal size. Mediastinum is normal. Thorax is normal. IMPRESSION: 1. Mild to moderate improvement with resolving pulmonary edema and congestive heart failure.
[2016-09-20 07:43] VITALS: BP 123/54
--- NOTE | 2016-09-20 07:43 | Progress Note ---
Subjective General The patient is a 80-year-old white male with a significant past medical history of COPD, diabetes mellitus, hypercholesterolemia, depression, who presented to [facility] secondary to fall with chest pain and difficulty breathing. [facility] ER evaluation was consistent with hemopneumothorax on the left side. Secondary to the above, the patient was admitted by Daniel Perera M.D. with medical management by Manuelito Mijares M.D. for further evaluation and treatment. Patient reports persistent pain in left chest, worst in back, worse with deep respiration or cough. Not feeling SOB on mask. Denies nausea or vomiting.Treated with lasix for CHF and doing better since. Has tubes that are out at this time. Was with trial of NC last night and didn't tolerate this well. Physical Exam Vital Signs / I&Os Vital Signs Date Time Temp Pulse Resp B/P Pulse O2 O2 Flow FiO2 Ox Delivery Rate 09/20 526 137/56 09/20 0514 68 18 95 oxy-mask 10.0 09/20 0244 10.0 09/19 2317 98.8 89 25 115/62 100 oxy-mask 9.0 09/19 2009 80 26 113/58 96 Nasal 6.0 Cannula 09/19 1958 6.0 09/19 1805 98.8 88 26 105/84 94 Nasal 5.0 Cannula 09/19 1442 98.2 88 20 128/58 92 Nasal 5.0 Cannula 09/19 1041 99.1 82 25 120/54 96 Oxymask 5.0 09/19 0929 10.0 09/19 0740 Oxymask 10.0 I&O 09/20 0000 09/19 1600 09/19 0800 Intake Total 690 900 240 Output Total 2049 850 795 Balance -1360 50 -555 General Appearance Alert, Cooperative HEENT Normal exam Lungs coarse BS with occasional wheeze and crackle Cardiovascular Regular rate and rhythm Abdomen Soft, No tenderness Extremities No edema Neurological Normal exam LAB Results Laboratory Tests 09/20 0532 Chemistry Plasma Sodium (136 - 145 mmol/L) 144 Plasma Potassium (3.5 - 5.1 mmol/L) 3.4 Plasma Chloride (98 - 107 mmol/L) 108 CO2 (Enzymatic) (21 - 32 mmol/L) 28 BUN (7 - 18 mg/dL) 32 Creatinine (0.6 - 1.3 mg/dL) 1.4 Est GFR ( Amer) (mL/min) >60 Est GFR (Non-Af Amer) (mL/min) 52.09 Glucose (70 - 110 mg/dL) 112 Plasma Calcium (8.5 - 10.1 mg/dL) 8.4 Plasma Magnesium (1.8 - 2.4 mg/dL) 2.0 Hematology WBC (4.5 - 11.5 K/uL) 6.3 RBC (4.50 - 5.90 M/uL) 3.04 Hgb (13.5 - 17.5 gm/dL) 10.0 Hct (41.0 - 53.0 %) 30.3 MCV (80 - 100 fL) 100 MCH (26 - 34 pg) 33 RDW (11.6 - 14.8 %) 13.8 Neut % (Auto) (50 - 75 %) 72.1 Lymph % (Auto) (25 - 40 %) 14.8 [place] % (Auto) (3 - 14 %) 9.9 Eos % (Auto) (0 - 4 %) 2.8 Baso % (Auto) (0 - 2 %) 0.4 Plt Count, EDTA (150 - 400 K/uL) 151 PUBS MCHC (31 - 37 g/dL) 33 Assessment and Plan Problem List 1. Hemothorax Plan Is post op and CT now out doing better. 2. Pneumothorax Plan Has been with PTX now post op some CP at surgery site. 3. COPD (chronic obstructive pulmonary disease) Status Chronic Onset Date Unknown Plan Has copd that is stable. 4. CHF (congestive heart failure) Status Acute Onset Date Unknown Plan Is on treatment for CHF and doing better. 5. Rib pain on left side Plan Has rib pain that is L sided from chest tube and injury from fall.
--- NOTE | 2016-09-20 08:30 | NUR ---
Patient in bed resting at this time. Patient is drowsy and doesn't want breakfast at this time. Oxy-mask 10L sats 99%. Patient denies pain and nausea at this time. Patient instructed to cough and deep breath when awake. No sob noted. NSR with PAC HR 64. IV LAC saline locked. Patient will be working with PT today. Ileostomy patent. Tello clear yellow urine. No complaints at this time. Pleasant and cooperative with care. Will continue to monitor.
[2016-09-20 10:45] VITALS: BP 151/70
--- NOTE | 2016-09-20 12:00 | NUR ---
Patient sitting up in chair at this time. Patient up to chair 1 person assistance and uses walker for support. Denies pain. Patient tolerating PO intake. Old chest tube dressing intact. Patient instructed to cough and deep breath frequently. No sob noted. Patient placed 4L NC sats 96%. No complaints at this time. Pleasant and cooperative with care. Will continue to monitor.
[2016-09-20 18:35] VITALS: BP 135/62
--- NOTE | 2016-09-20 18:58 | NUR ---
Patient in bed resting at this time. Continues on 4L NC sats 95%. No sob noted. Patient denies pain. Patient tolerating PO intake. IV LAC saline locked. Ileostomy patent. Tello patent. No complaints at this time. Pleasant and cooperative with care. Will continue to monitor.
[2016-09-20 20:59] VITALS: BP 120/61
--- NOTE | 2016-09-20 22:00 | NUR ---
PT IS RESTING IN BED. ALERT AND ORIENTED X3. EVERY 2 HOUR TURN. WAFFLE MATTRESS IN PLACE. 02 SATS AT 96% ON 4 LITERS O2 NC. NO DISTRESS NOTED. INCENTIVE SPIROMETER AT BEDSIDE - PT USE TO 500ML - ENCOURAGED USE EVERY HOUR X10 WHILE AWAKE - PT USES APPROPRAITELY. DRESSING TO LEFT CHEST WALL DRY AND INTACT - OLD DRAINAGE NOTED. PT COMPLAINT OF LEFT CHEST WALL PAIN AT A 2/10 - DECLINES PAIN MEDICATION AT THIS TIME. IV SALINE LOCKED TO LAC - UNREMARKABLE. CALL LIGHT WITHN REACH. NO REQUESTS AT THIS TIME.
[2016-09-20 23:39] VITALS: BP 146/67
[2016-09-21 02:52] VITALS: BP 136/55
--- NOTE | 2016-09-21 06:04 | NUR ---
0415 - LABS COMPLETED ORDERED. 0545 - CHEST XRAY COMPLETED ORDERED. PT REMAINS ALERT AND ORIENTED X3. O2 SATS AT 96% ON 4 LITERS NC. RESPIRATIONS AT 14, HEART RATE AT 71. PT WAS TURNED [place] COUPLE HOURS THROUGH OUT THE NIGHT. PO OXYCODONE FOR A PAIN OF 8/10 TO PTS LEFT RIB CAGE/SURGICAL SITE - EFFECTIVE ALLOWING PT TO SLEEP. CALL LIGHT WITHIN REACH. BED ALARM ON.
--- NOTE | 2016-09-21 06:26 | DIAGNOSTIC IMAGING REPORT ---
PROCEDURE: XR CHEST 1 VIEW INDICATION: post op PTX, follow-up TECHNIQUE: Portable AP view 05:09 a.m. COMPARISON: Chest x-ray 09/20/2016 FINDINGS: Continued mild improvement of the pulmonary vascular congestion and pulmonary edema. No change in the moderate right subpulmonic and small left pleural effusions. Borderline cardiomegaly. Thorax is normal. IMPRESSION: 1. Continued mild improvement of pulmonary edema and CHF
[2016-09-21 06:53] VITALS: BP 101/46
--- NOTE | 2016-09-21 07:29 | Progress Note ---
Subjective General 80-year-old white male with COPD, diabetes mellitus, hypercholesterolemia, depression, presented secondary to fall with chest pain and difficulty breathing. Diagnosed with hemopneumothorax on the left side. Admitted by Daniel Perera M.D. with medical management by Manuelito Mijares M.D. for further evaluation and treatment. Treated with chest tubes and decortication with good results. Developed CHF during hospital stay treated with ntg and lasix. Now improved post chest tube removal. Still has marked pain with movement and has not yet tolerated ambulation. Denies nausea, vomiting. Not SOB on nasal canula. Slept OK. Physical Exam Vital Signs / I&Os Vital Signs Date Time Temp Pulse Resp B/P Pulse O2 O2 Flow FiO2 Ox Delivery Rate 09/21 0653 98.2 64 18 101/46 96 Nasal 4.0 Cannula 09/21 0252 97.9 67 20 136/55 96 Nasal 4.0 Cannula 09/20 2339 98.2 67 22 146/67 97 Nasal 4.0 Cannula 09/20 2156 4.0 09/209 98.2 79 22 120/61 97 Nasal 4.0 Cannula 09/20 1939 Nasal 4.0 Cannula 09/20 1835 98.1 73 26 135/62 96 Nasal 4.0 Cannula 09/20 1237 10.0 09/20 1045 97.5 68 30 151/70 100 oxy-mask 10.0 09/20 0800 Mask 10.0 09/20 0743 97.7 71 21 123/54 99 oxy-mask 10.0 I&O 09/20 0800 09/20 1600 09/21 0000 Intake Total 240 1210 Output Total 700 970 650 Balance -700 -730 560 General Appearance Alert, Oriented X3, Cooperative, Mild distress Lungs Clear to auscultation Cardiovascular Regular rate and rhythm, No murmurs, gallops, rubs Abdomen Normal bowel sounds, Soft, No tenderness, No guarding, No rebound Extremities No cyanosis, No clubbing, No edema Skin No Rashes, No Significant Lesions LAB Results Laboratory Tests 09/21 9467 Chemistry Plasma Sodium (136 - 145 mmol/L) 141 Plasma Potassium (3.5 - 5.1 mmol/L) 3.8 Plasma Chloride (98 - 107 mmol/L) 105 CO2 (Enzymatic) (21 - 32 mmol/L) 26 BUN (7 - 18 mg/dL) 29 Creatinine (0.6 - 1.3 mg/dL) 1.1 Est GFR ( Amer) (mL/min) >60 Est GFR (Non-Af Amer) (mL/min) >60 Glucose (70 - 110 mg/dL) 107 Plasma Calcium (8.5 - 10.1 mg/dL) 8.5 Hematology WBC (4.5 - 11.5 K/uL) 7.1 RBC (4.50 - 5.90 M/uL) 3.14 Hgb (13.5 - 17.5 gm/dL) 10.1 Hct (41.0 - 53.0 %) 31.4 MCV (80 - 100 fL) 100 MCH (26 - 34 pg) 32 RDW (11.6 - 14.8 %) 14.0 Neut % (Auto) (50 - 75 %) 70.7 Lymph % (Auto) (25 - 40 %) 14.7 [place] % (Auto) (3 - 14 %) 11.1 Eos % (Auto) (0 - 4 %) 3.2 Baso % (Auto) (0 - 2 %) 0.3 Plt Count, EDTA (150 - 400 K/uL) 173 PUBS MCHC (31 - 37 g/dL) 32 Assessment and Plan Problem List 1. Pneumothorax Plan Improved post chest tube removal. CXR clear except mild CHF. 2. Hemothorax Plan Resolved post decortication. 3. Fall Plan Rib pain remains. 4. CHF (congestive heart failure) Status Acute Onset Date Unknown Plan Clinically improved with improving pulmonary edema on CXR. Will restart lasix and check BNP and echo. 5. Urinary retention Plan Trial of stopping madden.
--- NOTE | 2016-09-21 08:00 | NUR ---
Patient in bed resting at this time. Patient tolerating good PO intake. 4L NC 96%. Patient denies pain and nausea at this time. Patient instructed to cough and deep breath when awake. No sob noted. Tele irregular HR 68. IV LAC saline locked. Patient will be working with PT today. Ileostomy patent. Tello clear yellow urine. No complaints at this time. Pleasant and cooperative with care. Will continue to monitor.
--- NOTE | 2016-09-21 08:57 | NUR ---
In to see patient at the request of his RN, inquiring about last ileostomy appliance change, pt unable to remember, but is agreeable to me changing it for him at this time. Old appliance removed, peristomal skin cleansed, is intact with no rashes, open areas seen. Stoma is red, moist and above skin level, replaced with Esteem one-piece system, skin prep applied prior for skin protection, pt tolerated procedure well, will continue to monitor.
[2016-09-21 10:40] VITALS: BP 99/56
--- NOTE | 2016-09-21 10:52 | NUR ---
NUTRITION FOLLOW UP NOTE: Visted with pt this am. having a late breakfast 2/2 procedures this am. States appetite generally good lately. Noted pt eating ~90-100% of his meals. [place] and consistent carb diet in place 2/2 PMH of diabetes and HTN, hyperlipidemia (see H&P). Noted wts fluctuating which may be 2/2 lasix rx/diruetic tx; will continue to monitor. Rev'd accuchecks, appear within acceptable perameters, continues with SSI in palce for coverage. RD to follow up and avail for further consultation if desired.
--- NOTE | 2016-09-21 11:58 | NUR ---
pt supine in bed and agreeable to skilled PT treatment. pt completed supine to sit Min A with HOB elevated 30degrees. pt completed STS using a FWW CGA and ambulated 15ft around the bed to his chair. pt's mobility has improved but he is still continued to be recommended to d/c to SNF with PT to improve functional strength before he can safely return home.
[2016-09-21 13:51] VITALS: BP 103/53
--- NOTE | 2016-09-21 13:51 | NUR ---
Tello d/c'd at 1350. Patient to CT at this time.
--- NOTE | 2016-09-21 14:30 | NUR ---
Patient back from CT. Transfered by wheelchair. No complaints at this time. Pleasant and cooperative with care. Will continue to monitor.
--- NOTE | 2016-09-21 15:47 | DIAGNOSTIC IMAGING REPORT ---
PROCEDURE: US ECHOCARDIOGRAM INDICATION: Congestive heart failure TECHNIQUE: Technically adequate study. The patient's sinus rhythm. COMPARISON: None FINDINGS: Left ventricle normal in size. Normal wall thickness. No segmental wall motion abnormalities. Left ventricular ejection fraction is mildly decreased in visually estimated at 50%. Grade 1 diastolic dysfunction. Right ventricle with mild to moderately dilated with normal function. The right atrium moderately dilated. Left atrium mildly dilated. Interatrial septum is intact. Aortic valve trileaflet. Mild sclerosis. No stenosis. No regurgitation. Mitral valve structurally normal with trace insufficiency. Tricuspid valve is structurally normal with mild insufficiency. Pulmonary artery systolic pressure is estimated at 50 mmHg. Right atrial pressure is estimated at 15 mmHg. Pulmonic valves structurally normal with trace insufficiency. Aorta ascending aorta is normal in size 3.4 cm. Pericardium no pericardial effusion. Inferior vena cava there is possible mass in the inferior vena cava at the level of the liver. Clinical correlation recommended. IMPRESSION: Mildly decreased left ventricular ejection fraction of 50%. Grade 1 diastolic dysfunction. All valves normal in function. Possible thrombus in the inferior vena cava as noted above. Right pleural effusion present.
--- NOTE | 2016-09-21 17:21 | DIAGNOSTIC IMAGING REPORT ---
PROCEDURE: CTA THORAX ABDOMEN INDICATION: Abnormal echocardiogram with possible thrombus in the inferior vena cava. Assess for thrombosis or pulmonary embolus. TECHNIQUE: 116 ml of Isovue 370 injected intravenously and axial images were obtained through the entire thorax and abdomen with 3D MIP sagittal and coronal reformations. COMPARISON: Comparison is made to chest x-ray and echocardiogram earlier today (09/21/2016), and CT thorax abdomen pelvis (07/26/2016)1 FINDINGS: THORACIC AORTA AND GREAT VESSELS: There are moderate calcified atheromatous changes of the thoracic aorta with marked calcifications of the left coronary artery. Pulmonary vessels are normal and there is no evidence of pulmonary embolus. THORAX: There are moderate bibasilar atelectasis/consolidation with small bilateral pleural effusions. There is no evidence of pneumothorax. There are mildly displaced fractures of the left anterior lateral fifth, sixth, seventh, and eighth ribs. There is a small amount of subcutaneous emphysema. Heart and mediastinum are normal size. There are moderate degenerate changes thoracic spine. ABDOMEN AORTA AND MESENTERIC VESSELS: There are moderate calcified atheromatous changes of the abdominal aorta and iliac vessels with moderate thrombus in the distal aorta and probable occlusion of the left common iliac artery. No evidence of aneurysm. There are moderate calcified atheromatous changes of the origins of the celiac axis and superior mesenteric artery with probable 50-70% stenosis. There are moderate calcified atheromatous changes of bilateral renal arteries with probable 50% stenosis of the right renal artery. Delayed venous images were obtained, although there is suboptimal opacification of venous structures. Inferior vena cava is difficult to evaluate, although no large thrombi are identified. ABDOMEN: Right lower quadrant ostomy. Status post ventral abdominal wall hernia repair. Gallbladder, liver, spleen, pancreas are normal. Kidneys are within normal limits with small cortical cysts. Moderate to marked degenerative change of the lumbar spine. IMPRESSION: THORAX: 1. Moderate calcified atheromatous change of the thoracic aorta and coronary vessels. 2. Normal pulmonary arteries. No evidence of pulmonary embolus. 3. Moderate bibasilar atelectasis with small bilateral pleural effusions. 4. Fractures of the left lateral fifth, sixth, seventh, and eighth ribs with small amount of subcutaneous emphysema. No evidence of pneumothorax. ABDOMEN: 1. Marked calcified atheromatous change of the abdominal aorta and iliac vessels with occlusion of the left common iliac artery. 2. Marked calcified atheromatous change of the origins of the celiac axis and superior mesenteric artery with 50-70% stenosis. 3. Moderate calcified atheromatous change of the right renal artery origin with 50% stenosis. 4. Inferior vena cava is difficult to evaluate, although no large thrombi are identified. 5. Right lower quadrant ostomy. 6. Status post ventral abdominal wall hernia repair. Findings were discussed with Dr. Sukhdeep Cummins. All CT scans at this facility use dose modulation, iterative reconstruction, and/or weight-based dosing when appropriate to reduce radiation dose to as low as reasonably achievable.
[2016-09-21 18:28] VITALS: BP 130/59
--- NOTE | 2016-09-21 19:19 | DIAGNOSTIC IMAGING REPORT ---
PROCEDURE: US VENOUS - BILATERAL EXT INDICATION: Possible vena caval thrombus. Assess for DVT. TECHNIQUE: Color Doppler duplex imaging of the deep and superficial venous system without and with compression. COMPARISON: None. FINDINGS: RIGHT LOWER EXTREMITY: Deep and superficial venous system of the right lower extremity is within normal limits. There is no evidence of deep vein thrombosis or superficial thrombophlebitis. LEFT LOWER EXTREMITY: Deep and superficial venous system of the left lower extremity is within normal limits. There is no evidence of deep vein thrombosis or superficial thrombophlebitis. IMPRESSION: 1. Negative venous ultrasound of the bilateral lower extremities.
[2016-09-21 20:55] VITALS: BP 123/57
--- NOTE | 2016-09-21 21:04 | NUR ---
PT IS RESTING IN BED. ALERT AND ORIENTED X3. PAIN AT A 1/10 TO LEFT RIB CAGE - PO OXYCODONE EFFECTIVE IN PAIN CONTROL. PT WAS REPOSTIONED TO RIGHT SIDE - TOLERATED WELL. DRESSING TO LEFT CHEST WALL CDI. INCENTIVE SPIROMETER AT BEDSIDE - PT USE TO 600ML APPROPRIATELY X10 - FAMILY EDUCATED ON THE IMPORTANCE OF USE. PT ON TELE - SINUS RHYTHM NOTED. O2 SATS AT 94% ON 2 LITERS NC. HEART RATE 67. LAST BLOOD PRESSURE AT 123/57. WAFFLE MATTRESS IN PLACE. NO DISTRESS NOTED. SCDS BILAT. IV SALINE LOCKED AND UNREMARKABLE. CALL LIGHT WITHIN REACH. BED ALARM ON.
[2016-09-22 01:28] VITALS: BP 139/48
[2016-09-22 06:52] VITALS: BP 102/37
[2016-09-22] MEDS ORDERED: LEVOFLOXACIN500 MG PO (07:20)
[2016-09-22] MEDS ORDERED: TAMSULOSIN HCL0.4 MG PO (07:21)
[2016-09-22] MEDS ORDERED: ISOSORBIDE MONO30 MG PO (07:23)
[2016-09-22] MEDS ORDERED: FUROSEMIDE20 MG PO (07:25)
[2016-09-22] MEDS ORDERED: [UNRECOGNIZED DRUG - OTHER] PO (07:26)
--- NOTE | 2016-09-22 07:31 | Provider's Discharge Care Plan ---
Problem, Goal, Plan Problem List 1. Pneumothorax Instructions: Follow up as directed 2. Hemothorax Goals: Improved health/wellness, Resolved with chest tubes. Instructions: Follow up as directed 3. Fall Goals: Improved health/wellness, Resolvwed with chest tubes. Instructions: Take meds as directed 4. Rib pain on left side Goals: Improved health/wellness Instructions: Increase activity level 5. Urinary retention Goals: Improve disease control Instructions: Take meds as directed 6. COPD (chronic obstructive pulmonary disease) Goals: Improved health/wellness Instructions: Take meds as directed 7. CHF (congestive heart failure) Goals: Improve disease control, Improved health/wellness Instructions: Take meds as directed 8. BPH (benign prostatic hyperplasia) Goals: Improve disease control Instructions: Take meds as directed
--- NOTE | 2016-09-22 08:38 | DISCHARGE SUMMARY ---
ADMIT DATE: 09/15/2016 DISCHARGE DATE: 09/22/2016 ADMITTING DIAGNOSES: 1. Left hemopneumothorax with significant pleural density 2. History of chronic obstructive pulmonary disease 3. History of hypertension 4. History of benign prostatic hypertrophy 5. History of depression 6. History of colostomy and ventral hernia 7. History of hyperlipidemia 8. History of diabetes mellitus type 2 with diabetic neuropathy DISCHARGE DIAGNOSES: 1. Hemopneumothorax post fall 2. Congestive heart failure, new onset 3. Chronic obstructive pulmonary disease acute exacerbation 4. Diabetes mellitus type 2 with neuropathy 5. History of hypertension, benign prostatic hypertrophy, depression, colostomy , post bowel obstruction surgery, and hyperlipidemia BRIEF HISTORY: The patient presented to [facility] Emergency Department 3 days following a fall, with pain on the left side. Evaluation in the ED revealed hemopneumothorax and painful ribs. HOSPITAL COURSE: The patient was admitted for evacuation and treatment of hemopneumothorax. Surgical consultation was obtained with Dr. Perera. The patient was taken to the operating theater for thoracostomy, decortication and chest tube placement. This was performed with good results, and the patient began to have gradual improvement; however, he then developed some congestive heart failure symptomatology, causing worsening shortness of breath. This was treated with IV diuresis and IV nitrates with good results. Echocardiogram was obtained, which showed mildly decreased left ventricular ejection fraction of 50%, grade 1 diastolic dysfunction. All valves appeared normal in function. There was suspicion of thrombus in the inferior vena cava on the ultrasound. Therefore, CT pulmonary angiogram was obtained. This failed to confirm any thrombus in the inferior vena cava and also showed no evidence of pulmonary embolus. Ultrasound of the lower extremity venous systems was also obtained, with no evidence of DVT. The patient had gradually improving pain control and gradually decreasing oxygen requirement for supplementation. He was weaned slowly from mask to nasal cannula and was able to tolerate being up in chair. There was no leakage on water seal of chest tubes; therefore, under Dr. Perera's direction, chest tubes were removed, with good results. Chest x-rays failed to show any recurrence of pneumothorax or hemothorax. The small pleural effusions remained. The patient had gradual improving tolerance of sitting but remained unsteady on standing and transferring. Therefore, he was felt to be a candidate for discharge to detention for physical therapy and strengthening, to allow for independent functioning at home. Also during the hospitalization, the patient had urinary retention, consistent with his history of BPH and surgical intervention. He was treated with Tello catheter and continued Flomax as prior to admission. He tolerated this well performed. Tello catheter was removed on the day prior to discharge, with good results and ability to void independently. DISPOSITION: intermediate at [facility]. DISCHARGE MEDICATIONS/INSTRUCTIONS: Discharge medications: Levofloxacin 500 mg p.o. daily x5 days. Tamsulosin 0.4 mg p.o. b.i.d. Isosorbide mononitrate 30 mg p.o. daily. Vicodin 1-2 p.o. 4 hours p.r.n. pain, #120 prescribed. Furosemide 20 mg p.o. daily. Calcium carbonate 500 mg p.o. b.i.d. Eucerin cream p.r.n. Triamcinolone cream p.r.n. for itchy rash. Tiotropium bromide 18 mcg 1 cap inhaled daily. Metformin 500 mg p.o. b.i.d. Aspirin 81 mg p.o. daily. Lovastatin 40 mg p.o. daily. Sertraline 100 mg p.o. daily. Losartan 50 mg p.o. daily. Multivitamin 1 p.o. daily. [place]-3 fatty acids 1000 mg p.o. daily. Special instructions: Physical therapy as per [facility] for gradually progressive ambulation and strengthening. Follow up with Dr. Mijares in the rehabilitation facility.
--- NOTE | 2016-09-22 09:58 | NUR ---
PLEASANT AND COOPERATIVE PT WHO IS USING INCENTIVE SPIROMETER UP TO 1000CC. L LATERAL BACK WITH BRUISE AND DRESSING D/I. TOPICAL LIDOCAINE PATCH BEING USED FOR PAIN. BREATHS SOUNDS NOTED WITH EXP WHEEZE AND VERY DIMINISHED AROUND DRESSING SITE. BLE SCDS ARE IN PLACE.
[2016-09-22 10:30] VITALS: BP 156/60
--- NOTE | 2016-09-22 11:26 | NUR ---
pt seated in chair upon arrival. pt agreeable to skilled PT intervention. pt completed sit to stand using a w/c as an AD to push with O2 attached. pt began at 3L of O2. Ambulated 15ft and SpO2 dropped to 88%. O2 increased to 4L and SpO2 increased to 90%. pt took a brief standing break and ambulated back to his room. pt recommended to d/c to SNF for fucntional strengthening.
--- NOTE | 2016-09-22 12:10 | NUR ---
Report was called to [facility] at [facility]. All questions were answered. Il was discontinued in LAC. Accucheck done. Pt is oob to chair with one person standby assist. He cont on 3l n/c at this time.
--- NOTE | 2016-09-22 13:39 | NUR ---
PT WAS TRANSFERRED TO [facility] VIA [employer] [facility]. IL DISCONTINUED WITHOUT PROBLEM. ALL BELONGINGS WITH PT.
== END 2016-09-22 13:15 | DRG 199 ==
LOC: XR SRH 15:03 → CC SRH 16:08
PROVIDERS: Surgery; ADMIT Family Medicine
PROC: 0W9830Z Drainage of Chest Wall with Drainage Device, Percutaneous Approach (ICD-10-PCS; principal; 2016-09-16 14:00)
DX: S27.2XXA Traumatic hemopneumothorax, initial encounter (principal); I11.0 Hypertensive heart disease with heart failure; I50.31 Acute diastolic (congestive) heart failure; J90 Pleural effusion, not elsewhere classified; J44.1 Chronic obstructive pulmonary disease with (acute) exacerbation; J98.11 Atelectasis; W18.30XA Fall on same level, unspecified, initial encounter; E11.40 Type 2 diabetes mellitus with diabetic neuropathy, unspecified; F32.9 Major depressive disorder, single episode, unspecified; E78.5 Hyperlipidemia, unspecified; N40.1 Benign prostatic hyperplasia with lower urinary tract symptoms; R33.9 Retention of urine, unspecified; R06.82 Tachypnea, not elsewhere classified; L98.9 Disorder of the skin and subcutaneous tissue, unspecified; Z79.84 Long term (current) use of oral hypoglycemic drugs; Z91.81 History of falling; Z87.891 Personal history of nicotine dependence; Z93.2 Ileostomy status; Z83.3 Family history of diabetes mellitus; Y93.9 Activity, unspecified; Z93.3 Colostomy status
CPT/HCPCS: 50002; 60001; 70002; 80011; 80102; 80212; 80248; 80311; 81312; 81687; 81743; 82794; 83068; 83125; 83432; 83455; 83475; 84038; 84044; 85241; 85592; 90047; 90074; 90098; 90100; 90616; 91320; 92132; 92720; 95059